=== PATIENT | female | born 1945 | race Caucasian/White ===

== ENCOUNTER 2018-11-24 21:30 | Emergency (ER) | payer MEDICARE, MEDICAID ==
[~2018-11-24] VITALS: Ht 162.6 cm; Wt 79.3 kg
[~2018-11-24 21:30] MED LIST: ACET500C5 PO; RANI-287 PO
[2018-11-24 21:39] VITALS: Ht 162.6 cm; Wt 79.3 kg
[2018-11-24 22:50] VITALS: BP 131/69; PULSE 71; RESP 18
[2018-11-24] MEDS ORDERED: ACETAMINOPHEN 325 MG TAB PO ONE (23:00)
== END 2018-11-25 01:05 | disposition home or self-care (01) ==
LOC: E/R 21:30
DX: R10.11 Right upper quadrant pain (principal)
CPT/HCPCS: 36415; 76705; 80053; 81001; 83690; 85025